=== PATIENT | female | born 1985 | race Caucasian/White ===

== ENCOUNTER 2018-12-17 15:55 | Emergency (ER) | payer OTHER ==
[2018-12-17 16:10] VITALS: BP 117/50; PULSE 65; TEMP 97.6; BMI 26.1
--- NOTE | 2018-12-17 17:31 | PDOC ---
Documentation entered by Quentin Dow SCRIBE, acting as scribe for Edwin La MD. Edwin La MD: This documentation has been prepared by the josheVictor M Aiswarya, SCRIBE, under my direction and personally reviewed by me in its entirety. I confirm that the documentation accurately reflects all work, treatment, procedures, and medical decision making performed by me. History of Present Illness - General Chief Complaint: Laceration Stated Complaint: ANKLE LACERATION Time Seen by Provider: 12/17/18 16:04 History Source: Patient Exam Limitations: No Limitations - History of Present Illness Initial Comments: 12/17/18 17:10 The patient is a 33 year old female, with no significant PMH, who presents to the emergency department with a left leg laceration that occurred today. The patient states she was taking out the trash with some glass sticking out of the bag and scraped her left leg. The patient complains of mild bleeding and pain. Last tetanus shot was a year ago. She denies any numbness or tingling. Denies any head trauma. Allergies: Doxycycline Past surgical history: None reported Social history: None reported PCP: Annalisa Pierre Past History - Past Medical History Allergies/Adverse Reactions: Allergies Allergy/AdvReac Type Severity Reaction Status Date / Time doxycycline Allergy Verified 11/10/15 07:31 Home Medications: Ambulatory Orders NK [No Known Home Medication] 12/17/18 COPD: No - Immunization History TDAP Vaccination: Yes (2018) Immunization Up to Date: No - Suicide/Smoking/Psychosocial Hx Smoking History: Never smoked Number of Cigarettes Smoked Daily: 0 Hx Alcohol Use: No Drug/Substance Use Hx: No Substance Use Type: Alcohol Review of Systems - Review of Systems Able to Perform ROS?: Yes Comments:: 12/17/18 17:10 Skin:+ Left leg laceration to lower anterior leg. neurological: denies headache, numbness, focal weakness, tingling, ataxia, weakness hematologic: denies anemia, easy bruising, easy bleeding *Physical Exam - Vital Signs Last Vital Signs Temp Pulse Resp BP Pulse Ox 97.6 F 65 15 117/50 L 100 12/17/18 15:59 12/17/18 15:59 12/17/18 15:59 12/17/18 15:59 12/17/18 15:59 - Physical Exam Comments: 12/17/18 17:11 GENERAL: The patient is awake, alert, and fully oriented, Nontoxic - in no acute distress. SKIN:+2.4 cm superficial laceration to the left lower anterior portion of the leg. No foreign bodies detected. No active bleeding. Procedures - Consent Consent obtained: Verbal - Laceration/Wound Repair Left Anterior Leg Wound Length: to 2.5 cm Wound Explored: clean, no foreign body present Wound's Depth, Shape: superficial Irrigated w/ Saline: Yes Anesthesia: 1% Lidocaine Amount of Anesthetic (ccs): 5 Wound Debrided: minimal Wound Repaired With: Sutures Suture Size/Type: 3:0 Number of Sutures: 4 Layer Closure: No Sterile Dressing Applied: Yes Progress: 12/17/18 16:57 well appoximated Medical Decision Making - Medical Decision Making 12/17/18 16:57 tatnaus UTD wound irrigated and closed with 4x sutures with good approximation return rpecuations were discussed I discussed the physical exam findings, ancillary test results and final diagnoses with the patient. I answered all of the patient's questions. The patient was satisfied with the care received and felt comfortable with the discharge plan and treatment plan. The patient will call their primary care physician within 24 hours to arrange follow-up and will return to the Emergency Department with any new, persistent or worsening symptoms. *DC/Admit/Observation/Transfer Diagnosis at time of Disposition: Laceration of leg Qualifiers: Encounter type: initial encounter Laterality: left Qualified Code(s): S81.812A - Laceration without foreign body, left lower leg, initial encounter - Discharge Dispostion Disposition: HOME Condition at time of disposition: Improved Decision to Admit order: No - Referrals Referrals: Annalisa Pierre MD [Primary Care Provider] - - Patient Instructions Printed Discharge Instructions: DI for Laceration Repair Additional Instructions: Return to the emergency department immediately with ANY new, persistent or worsening symptoms including any redness, bleeding, purulent discharge, swelling or other concerns. Keep the area clean and dry for 48 hours. Afterwards you may clean gently with soap and water. Apply bacitracin twice a day. Keep the area away from the sun for the next 9 months, please use sunscreen and wear a hat if you need to be in the sun to improve appearance of the scar. Return in 10-14 days for suture removal. You MUST call and follow up with your doctor tomorrow for further evaluation of your symptoms. Results were discussed with you. Please make sure your doctor reviews the results of your emergency evaluation. Print Language: URUGUAYAN - Post Discharge Activity
== END 2018-12-17 17:02 | disposition home or self-care (01) ==
LOC: SUPCPDRO 15:55 → FER 15:55
PROC: 0HQLXZZ Repair Left Lower Leg Skin, External Approach (ICD-10-PCS; principal; 2018-12-17)
DX: S81.812A Laceration without foreign body, left lower leg, initial encounter (principal); W25.XXXA Contact with sharp glass, initial encounter; Y93.89 Activity, other specified; Y92.008 Other place in unspecified non-institutional (private) residence as the place of occurrence of the external cause
CPT/HCPCS: 99282-25

== ENCOUNTER 2019-01-13 18:06 | Emergency (ER) | payer OTHER ==
[2019-01-13 19:05] VITALS: BP 88/54; PULSE 68; TEMP 98.1; BMI 23.3
[2019-01-13] MEDS ORDERED: FAMOTIDINE 20 MG/50 ML IVPB 20 MG/50 ML MG IVPB ONE ×2 (19:44→19:59)
[2019-01-13] MEDS ORDERED: SODIUM CHLORIDE 0.9% 500 ML INFUS.BAG IV ONE (19:44)
[2019-01-13] MEDS ORDERED: AMPICILLIN NA/SULBACTAM NA 1.5 GM in SODIUM CHLORIDE 100 ML IVPB ONE (19:44)
[2019-01-13] MEDS ORDERED: AMPICILLIN NA/SULBACTAM NA 1.5 GM VIAL ONE (19:59)
[2019-01-13 20:23] LABS: ALBUMIN 4.6 g/dl (3.4-5.0); BILIRUBIN,TOTAL 0.7 mg/dl (0.2-1); CALCIUM 9.3 mg/dl (8.5-10); CREATININE 0.6 mg/dl (0.55-1.3); POTASSIUM 4.2 mmol/L (3.5-5.1); TOT PROT 7.9 g/dl (6.4-8.2)
[2019-01-13 20:50] LABS: BASO % 0.4 % (0-2.0); EOS % 1.6 % (0-4.5); HEMATOCRIT 40.4 % (32.4-45.2); HEMOGLOBIN 13.4 GM/dL (10.7-15.3); MCH 30.7 pg (25.7-33.7); MEAN CELL VOLUME 92.9 fl (80-96); MEAN PLT VOLUME 10.2 fl (7.5-11.1); MONO % 9.6 % (3.8-10.2); NEUT % 66.4 % (42.8-82.8); PLATELET COUNT 259 K/MM3 (134-434); RBC 4.35 M/mm3 (3.60-5.2); RDW 12.6 % (11.6-15.6); WHITE BLOOD COUNT 6.3 K/mm3 (4.0-10.0)
--- NOTE | 2019-01-13 21:15 | PDOC ---
Documentation entered by Yannick Rodriguez SCRIBE, acting as scribe for Yue Mcintyre MD. Yue Mcintyre MD: This documentation has been prepared by the Michael drummond Daniel, SCRIBE, under my direction and personally reviewed by me in its entirety. I confirm that the documentation accurately reflects all work, treatment, procedures, and medical decision making performed by me. History of Present Illness - General Chief Complaint: Nausea Stated Complaint: UPSET STOMACH History Source: Patient Exam Limitations: No Limitations - History of Present Illness Initial Comments: 01/13/19 19:49 The patient is a 33 year old female with no past medical history here today for evaluation of abdominal pain. The patient reports that she has been having 4 days of abdominal pain, nausea, gas and bloating, and diarrhea (describes it as loose and watery and approximately twice daily). She reports that she had one episode of this previously and took a 14 day course of medication (patient unsure of medication) which helped at first but now states her symptoms are worse. She also states that she has been taking probiotics which havent helped. Patient reports that she is currently menstruating. Patient denies headache, lightheadedness. Denies fever, chills. Denies chest pain, shortness of breath. Denies vomiting. Allergies: doxycycline PCP: Annalisa Vincent Past History - Past Medical History Allergies/Adverse Reactions: Allergies Allergy/AdvReac Type Severity Reaction Status Date / Time doxycycline Allergy Verified 11/10/15 07:31 Home Medications: Ambulatory Orders Amoxicillin/Potassium Clav [Augmentin 875-125 Tablet] 1 each PO BID #14 tablet 01/13/19 COPD: No - Immunization History TDAP Vaccination: Yes (2018) Immunization Up to Date: No - Suicide/Smoking/Psychosocial Hx Smoking History: Never smoked Number of Cigarettes Smoked Daily: 0 Hx Alcohol Use: No Drug/Substance Use Hx: No Substance Use Type: Alcohol Review of Systems - Review of Systems Able to Perform ROS?: Yes Comments:: 01/13/19 19:50 GENERAL/CONSTITUTIONAL: No fever or chills. No weakness. HEAD, EYES, EARS, NOSE AND THROAT: No change in vision. No ear pain or discharge. No sore throat. CARDIOVASCULAR: No chest pain or shortness of breath. RESPIRATORY: No cough, wheezing, or hemoptysis. GASTROINTESTINAL: +nausea. +abdominal pain. +diarrhea. No vomiting. GENITOURINARY: No dysuria, frequency, or change in urination. MUSCULOSKELETAL: No joint or muscle swelling or pain. No neck or back pain. SKIN: No rash NEUROLOGIC: No headache, vertigo, loss of consciousness, or change in strength/ sensation. ENDOCRINE: No increased thirst. No abnormal weight change. HEMATOLOGIC/LYMPHATIC: No anemia, easy bleeding, or history of blood clots. ALLERGIC/IMMUNOLOGIC: No hives or skin allergy. *Physical Exam - Vital Signs Last Vital Signs Temp Pulse Resp BP Pulse Ox 98.1 F 68 16 88/54 L 98 01/13/19 18:08 01/13/19 18:08 01/13/19 18:08 01/13/19 18:08 01/13/19 18:08 - Physical Exam Comments: 01/13/19 19:51 GENERAL: Awake, alert, and fully oriented, in no acute distress HEAD: No signs of trauma EYES: PERRLA, EOMI, sclera anicteric, conjunctiva clear ENT: Auricles normal inspection, hearing grossly normal, nares patent, oropharynx clear without exudates. Moist mucosa NECK: Normal ROM, supple, no lymphadenopathy, JVD, or masses LUNGS: Breath sounds equal, clear to auscultation bilaterally. No wheezes, and no crackles HEART: Regular rate and rhythm, normal S1 and S2, no murmurs, rubs or gallops ABDOMEN: +gassy bowel sounds. +gas right side of abdomen. Soft, nontender. No guarding, no rebound. No masses EXTREMITIES: Normal range of motion, no edema. No clubbing or cyanosis. No cords, erythema, or tenderness NEUROLOGICAL: Cranial nerves II through XII grossly intact. Normal speech, normal gait SKIN: Warm, Dry, normal turgor, no rashes or lesions noted. ED Treatment Course - LABORATORY CBC & Chemistry Diagram: 01/13/19 19:40 01/13/19 19:40 - ADDITIONAL ORDERS Additional order review: Laboratory Results 01/13/19 01/13/19 19:40 19:40 Urine Color Yellow Urine Appearance Clear Urine pH 7.5 Urine Protein Negative Urine Glucose (UA) Negative Urine Ketones Negative Urine Blood Negative Urine Nitrite Negative Urine Bilirubin Negative Urine Urobilinogen 0.2 Ur Leukocyte Esterase Negative POC Urine HCG, Qual Negative - Medications Given in the ED: ED Medications Discontinued Medications Generic Name Dose Route Start Last Admin Trade Name Bobo PRN Reason Stop Dose Admin Famotidine/Sodium Chloride 20 mg in 50 mls @ 100 mls/hr 01/13/19 19:44 20:00 Pepcid 20 Mg Premixed Ivpb - IVPB 01/13/19 20:13 100 mls/hr ONCE ONE Administration Ampicillin Sodium/Sulbactam 100 mls @ 200 mls/hr 01/13/19 19:44 01/13/19 20: 16 Sodium 1.5 gm/ Sodium Chloride IVPB 01/13/19 20:13 200 mls/hr ONCE ONE Administration Sodium Chloride 1,000 ml 01/13/19 19:44 01/13/19 19:10 Normal Saline - IV 01/13/19 19:45 1,000 ml ONCE ONE Administration Medical Decision Making - Medical Decision Making 01/13/19 20:21 UA is normal 01/13/19 23:23 Labs normal. Pt is eating hebrew takeOcelus soup. Pt will be treated with augmentin BID for bacterial gastroentertitis. She will follow with her PMD. No CT or other imaging stidy needed at this time. *DC/Admit/Observation/Transfer Diagnosis at time of Disposition: Diarrhea - Discharge Dispostion Disposition: HOME Condition at time of disposition: Improved Decision to Admit order: No - Prescriptions Prescriptions: Amoxicillin/Potassium Clav [Augmentin 875-125 Tablet] 1 each PO BID #14 tablet - Referrals Referrals: Annalisa Pierre MD [Primary Care Provider] - - Patient Instructions Printed Discharge Instructions: Diarrhea, DI for Bacterial Gastroenteritis -- Adult - Post Discharge Activity
== END 2019-01-13 21:25 | disposition home or self-care (01) ==
LOC: FER 18:06
PROC: 3E0337Z Introduction of Electrolytic and Water Balance Substance into Peripheral Vein, Percutaneous Approach (ICD-10-PCS; principal; 2019-01-13)
PROC: 3E03329 Introduction of Other Anti-infective into Peripheral Vein, Percutaneous Approach (ICD-10-PCS; 2019-01-13)
PROC: 3E033GC Introduction of Other Therapeutic Substance into Peripheral Vein, Percutaneous Approach (ICD-10-PCS; 2019-01-13)
DX: R19.7 Diarrhea, unspecified (principal)
CPT/HCPCS: 36415; 80053; 81003; 81025; 85025; 99282-25

== ENCOUNTER 2020-05-06 14:18 | Emergency (ER) | payer OTHER ==
[2020-05-06 14:33] VITALS: BP 118/78; PULSE 72; TEMP 99; BMI 24.7
--- NOTE | 2020-05-06 14:40 | PDOC ---
History of Present Illness - General Chief Complaint: Pain, Acute Stated Complaint: both legs and arms hurt Time Seen by Provider: 05/06/20 14:20 History Source: Patient Exam Limitations: No Limitations - History of Present Illness Initial Comments: 35 yo F history varicose veins, s/p ablation in Jul 2019 presenting with swelling to B/L thighs as well as R forearm. She denies any trauma. She states that her legs used to feel tired and heavy, but improved after her procedure in July. However, over the last few days, she states that her legs are feeling tired and swollen. She also noted swelling to the R forearm with a knot. Denies fever, chills, ankle swelling. No OCP use. No prior history of blood clots. +Family history of blood clots. Past History - Medical History Allergies/Adverse Reactions: Allergies Allergy/AdvReac Type Severity Reaction Status Date / Time doxycycline Allergy Verified 05/06/20 14:24 Home Medications: Ambulatory Orders NK [No Known Home Medication] 05/06/20 COPD: No - Reproductive History Is Patient Now?: No - Immunization History TDAP Vaccination: Yes (2017) Immunization Up to Date: No - Psycho-Social/Smoking History Smoking History: Never smoked Number of Cigarettes Smoked Daily: 0 - Substance Abuse Hx (Audit-C & DAST Scrn) How often the patient has a drink containing alcohol: Never Score: In Men: 4 or > Positive; In Women: 3 or > Positive: 0 Screen Result (Pos requires Nsg. Audit-10AR): Negative In the last yr the pt used illegal drug/Rx for NonMed reason: No Score: Yes response is considered Positive: 0 Screen Result (Positive result requires Nsg. DAST-10): Negative Review of Systems - Review of Systems Able to Perform ROS?: Yes Comments:: GENERAL/CONSTITUTIONAL: No fever or chills. No weakness. HEAD, EYES, EARS, NOSE AND THROAT: No change in vision. No ear pain or discharge. No sore throat. CARDIOVASCULAR: No chest pain or shortness of breath. RESPIRATORY: No cough, wheezing, or hemoptysis. GASTROINTESTINAL: No nausea, vomiting, diarrhea or constipation. GENITOURINARY: No dysuria, frequency, or change in urination. MUSCULOSKELETAL: +B/L thigh and R forearm swelling. No neck or back pain. SKIN: No rash. NEUROLOGIC: No headache, vertigo, loss of consciousness, or change in strength/sensation. ENDOCRINE: No increased thirst. No abnormal weight change. HEMATOLOGIC/LYMPHATIC: No anemia, easy bleeding, or history of blood clots. ALLERGIC/IMMUNOLOGIC: No hives or skin allergy. *Physical Exam - Vital Signs Last Vital Signs Temp Pulse Resp BP Pulse Ox 99.0 F 72 16 118/78 100 05/06/20 14:19 05/06/20 14:19 05/06/20 14:19 05/06/20 14:05/06/20 14:19 - Physical Exam GENERAL: Awake, alert, and fully oriented, in no acute distress EXTREMITIES: Normal range of motion. No clubbing or cyanosis. No cords, erythema. +Mild edema to the B/L inner thighs, with a roughly horizontal line noted to the bottom of the edematous area B/L. No induration, no erythema, no warmth, no cords. No calf tenderness. Forearms normal to palpation- no induration, no erythema. NEUROLOGICAL: Cranial nerves II through XII grossly intact. Normal speech, normal gait. Motor and sensation intact SKIN: Warm, dry, normal turgor, no rashes or lesions noted. ED Treatment Course - LABORATORY CBC & Chemistry Diagram: 05/06/20 14:44 05/06/20 14:44 Medical Decision Making - Medical Decision Making 05/06/20 14:44 Pt with swelling to the inner thighs B/L. No signs of abscess, cellulitis. This may be DVT, however, the presentation is a bit atypical. Will obtain US to r/o. However, would also consider polymyositis or other autoimmune pathology. Will send labs including CBC, CMP, CPK, COURT, ESR. Likely rheum f/u. 05/06/20 16:08 ESR negative. Lab results discussed with patient. COURT still pending, callback placed. The horizontal line that is showing on her thighs may be scarring from the previous procedure. Will refer to the wound care clinic for second opinion. Will also refer to primary care at [facility] regarding diffuse muscle pains. Discharge - Discharge Information Problems reviewed: Yes Clinical Impression/Diagnosis: Peripheral edema Condition: Stable Disposition: HOME - Follow up/Referral Referrals: [facility] [place] [Provider Group] Cornelius Morales MD [Staff Physician] - - Patient Discharge Instructions Patient Printed Discharge Instructions: DI for Peripheral Edema -- Bilateral Additional Instructions: [facility] Rheumatology [phone] - Post Discharge Activity
[2020-05-06 15:03] LABS: BASO % 0.5 % (0-2.0); EOS % 0.5 % (0-4.5); HEMATOCRIT 36.5 % (32.4-45.2); HEMOGLOBIN 12.1 GM/dl (10.7-15.3); LYMPH % 30.1 % (8-40); MCH 31.1 pg (25.7-33.7); MCHC 33.3 g/dl (32.0-36.0); MEAN CELL VOLUME 93.5 fl (80-96); MEAN PLT VOLUME 9.3 fl (7.5-11.1); MONO % 5.9 % (3.8-10.2); PLATELET COUNT 255 K/MM3 (134-434); RDW 12.4 % (11.6-15.6); WHITE BLOOD COUNT 6.2 K/mm3 (4.0-10.8)
[2020-05-06 15:24] LABS: ALBUMIN 4.4 g/dl (3.4-5.0); CALCIUM 8.8 mg/dl (8.5-10); CREATININE 0.6 mg/dl (0.55-1.3); POTASSIUM 3.8 mmol/L (3.5-5.1); TOT PROT 6.8 g/dl (6.4-8.2)
[2020-05-06 15:55] LABS: ERYTHROCYTE SEDIMENTATION RATE 7 mm/hr (0-20)
== END 2020-05-06 16:13 | disposition home or self-care (01) ==
LOC: FER 14:18
DX: R60.9 Edema, unspecified (principal)
CPT/HCPCS: 36415; 80053; 82550; 85025; 85651; 86038; 93970-TC; 99284-25

== ENCOUNTER 2023-02-02 13:04 | Emergency (ER) | payer OTHER ==
[2023-02-02 13:19] VITALS: BP 131/70; PULSE 76; RESP 16; TEMP 98; BMI 24.4
[2023-02-02] MEDS ORDERED: DOXYCYCLINE HYCLATE 100 MG CAPSULE PO ONE ×2 (13:24→13:28)
== END 2023-02-02 13:38 | disposition home or self-care (01) ==
LOC: FER 13:04
DX: S70.361A Insect bite (nonvenomous), right thigh, initial encounter (principal); W57.XXXA Bitten or stung by nonvenomous insect and other nonvenomous arthropods, initial encounter
CPT/HCPCS: 36415; 81025; 86618; 99283-25